=== PATIENT | female | born 1960 | race African-American/Black ===

== ENCOUNTER 2017-07-03 15:10 | Observation (INO) | payer OTHER, BC ==
[2017-07-03 15:32] VITALS: BMI 33.6
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
[2017-07-03 16:15] LABS: BASOPHIL 1.2 % (0-2.0); EOSINOPHIL 4.5 % (0-4.5); MCH 28.8 pg (25.7-33.7); MCHC 32.4 g/dl (32.0-36.0); MEAN CELL VOLUME 88.9 fl (80-96); MEAN PLT VOLUME 9.2 fl (7.5-11.1); PLATELET COUNT 94 K/MM3 (134-434); RDW 20.3 % (11.6-15.6); WHITE BLOOD COUNT 3.8 K/mm3 (4.0-10.0)
--- NOTE | 2017-07-03 16:28 | PDOC ---
*Physical Exam - Vital Signs Last Vital Signs Temp Pulse Resp BP Pulse Ox 99.1 F 86 19 143/80 95 07/03/17 15:27 07/03/17 15:27 07/03/17 15:27 07/03/17 15:27 07/03/17 15:27 ED Treatment Course - LABORATORY CBC & Chemistry Diagram: 07/03/17 16:10 07/03/17 16:10 - ADDITIONAL ORDERS Additional order review: 07/03/17 16:10 RBC 3.78 D MCV 88.9 MCHC 32.4 RDW 20.3 H D MPV 9.2 Neutrophils % 62.0 Lymphocytes % 27.0 D Monocytes % 5.3 Eosinophils % 4.5 Basophils % 1.2 Medical Decision Making - Medical Decision Making 07/03/17 16:26 Pt seen by Midlevel Provider under my direct supervision Ancillary studies reviewed I agree with plan as outlined by Midlevel Provider *DC/Admit/Observation/Transfer Diagnosis at time of Disposition: Malaise, Dialysis patient - Discharge Dispostion Disposition: HOME Condition at time of disposition: Stable
[2017-07-03 16:45] LABS: INR 0.97 (0.82-1.09); PROTHROMBIN TIME (PATIENT) 10.7 SEC (9.98-11.88)
[2017-07-03 16:46] LABS: ALBUMIN 3.4 g/dl (3.4-5.0); ANION GAP 10 (8-16); BILIRUBIN,TOTAL 0.5 mg/dL (0.2-1.0); CALCIUM 9.3 mg/dL (8.5-10.1); CO2 29 mmol/L (21-32); GLUCOSE,RANDOM 125 mg/dL (74-106); SGOT/AST 34 U/L (15-37); SGPT/ALT 20 U/L (12-78); TOT PROT 7.4 g/dl (6.4-8.2)
[2017-07-03 16:49] LABS: ALK PHOS 122 U/L (45-117); CPK 75 IU/L (26-192); TROPONIN I < 0.02 ng/ml (0.00-0.05)
[2017-07-03 16:57] LABS: PLATELET COMMENT2 NO CLOTTING DETECTED; PLATELET COMMENT3 FEW LARGE PLTS; PLATELET ESTIMATE DECREASED (NORMAL)
[2017-07-03] MEDS ORDERED: IBUPROFEN 600 MG TABLET (FP) PO PRN (17:25)
[2017-07-03] MEDS ORDERED: diphenhydrAMINE HCL 25 MG CAPSULE (FP) PO PRN (17:25)
[2017-07-03] MEDS ORDERED: NICOTINE 7 MG/24 HOURS TOPICAL PATCH TD SCH (17:30)
[2017-07-03] MEDS ORDERED: ERGOCALCIFEROL (VITAMIN D2) 50,000 UNIT CAPSULE (FP) PO SCH (17:30)
[2017-07-03] MEDS ORDERED: PATIENT'S OWN MEDICATION (NON-FORMULARY) (Oxycodone Hcl [Oxycodone Hcl] 10 MG) PO SCH (17:30)
[2017-07-03] MEDS ORDERED: oxyCODONE HCL 5 MG TABLET PO PRN (17:31)
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
[2017-07-03 21:41] VITALS: TEMP 98.1
[2017-07-03] MEDS ORDERED: POTASSIUM CHLORIDE TABS 10 MEQ TABLET.ER (FP) PO SCH (22:00)
[2017-07-03] MEDS ORDERED: ZOLPIDEM TARTRATE 5 MG TABLET PO PRN (22:00)
[2017-07-03] MEDS ORDERED: RIFAXIMIN 550 MG TABLET (UD) PO SCH (22:00)
[2017-07-04 00:11] VITALS: BP 142/88; PULSE 85
[2017-07-04] MEDS ORDERED: LEVOTHYROXINE NA 50 MCG TABLET (FP) PO SCH (07:00)
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
--- NOTE | 2017-07-04 09:47 | EKG ---
Test Reason : Blood Pressure : / mmHG Vent. Rate : 069 BPM Atrial Rate : 069 BPM P-R Int : 210 ms QRS Dur : 094 ms QT Int : 454 ms P-R-T Axes : 031 041 049 degrees QTc Int : 486 ms SINUS RHYTHM WITH 1ST DEGREE A-V BLOCK PROLONGED QT ABNORMAL ECG WHEN COMPARED WITH ECG OF 26-JUN-2013 23:11, NO SIGNIFICANT CHANGE WAS FOUND Confirmed by MD CHINO, KRISTA ([id number]) on 07/04/2017 9:47:46 AM Referred By: Confirmed By:KRISTA MAGANA MD
[2017-07-04] MEDS ORDERED: MAGNESIUM OXIDE 400 MG TABLET (FP) PO SCH (10:00)
[2017-07-04] MEDS ORDERED: FEBUXOSTAT 40 MG TAB PO SCH (10:00)
[2017-07-04] MEDS ORDERED: DULoxetine HCL 30 MG CAPSULE.DR (FP) PO SCH (10:00)
[2017-07-04] MEDS ORDERED: DOXAZOSIN MESYLATE 2 MG TABLET (FP) PO SCH (10:00)
[2017-07-04] MEDS ORDERED: FOLIC ACID 1 MG TABLET (FP) PO SCH (10:00)
[2017-07-04] MEDS ORDERED: LACTULOSE 20 GM/30 ML UDC (FOR ORAL USE ONLY) PO SCH (10:00)
[2017-07-04] MEDS ORDERED: cloNIDine HCL 0.1 MG TABLET PO SCH (10:00)
[2017-07-04] MEDS ORDERED: CALCITRIOL 0.25 MCG CAPSULE (FP) PO SCH (10:00)
[2017-07-04] MEDS ORDERED: FUROSEMIDE 20 MG TABLET (FP) PO SCH (10:00)
[2017-07-04] MEDS ORDERED: DOXEPIN HCL 25 MG CAPSULE PO SCH (22:00)
[2017-07-07 00:06] LABS: HEP B SURFACE AB Reactive (.)
== END 2017-07-04 00:50 | disposition home or self-care (01) ==
LOC: JER 15:10 → JERBED 17:49 → UNDOADMOB 18:23 → JERBED 18:23 → J5S 19:08
PROVIDERS: ADMIT Internal Medicine; ATTEND Nurse Practitioner Family
DX: N18.5 Chronic kidney disease, stage 5 (principal); I12.0 Hypertensive chronic kidney disease with stage 5 chronic kidney disease or end stage renal disease; N17.9 Acute kidney failure, unspecified; Z99.2 Dependence on renal dialysis; I50.9 Heart failure, unspecified; D64.9 Anemia, unspecified; E11.9 Type 2 diabetes mellitus without complications; E78.00 Pure hypercholesterolemia, unspecified; K74.60 Unspecified cirrhosis of liver; Z88.8 Allergy status to other drugs, medicaments and biological substances; Z95.5 Presence of coronary angioplasty implant and graft; F17.210 Nicotine dependence, cigarettes, uncomplicated; L29.9 Pruritus, unspecified; Z79.84 Long term (current) use of oral hypoglycemic drugs; E03.9 Hypothyroidism, unspecified; M10.9 Gout, unspecified; R53.81 Other malaise
CPT/HCPCS: 36415; 71010-TC; 80053; 84484; 85025; 85610; 86704; 86706; 86708; 86803; 87340; 93005; 93010; 99282-25; G0378

== ENCOUNTER 2019-05-31 00:41 | Emergency (ER) | payer OTHER, BC ==
[2019-05-31 00:54] VITALS: TEMP 97.8; BMI 30.1
[2019-05-31] MEDS ORDERED: ACETAMINOPHEN 500 MG TABLET (FP) PO ONE (01:24)
[2019-05-31] MEDS ORDERED: ACETAMINOPHEN 325 MG TABLET (FP) ONE (02:03)
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
[2019-05-31 02:49] VITALS: BP 90/48; PULSE 70
[2019-05-31] MEDS ORDERED: BACITRACIN 0.9 GM PACKET ONE (03:17)
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
== END 2019-05-31 04:00 | disposition left against medical advice (07) ==
LOC: JER 00:41
DX: M25.561 Pain in right knee (principal); M25.562 Pain in left knee; M54.5 Low back pain; W01.0XXA Fall on same level from slipping, tripping and stumbling without subsequent striking against object, initial encounter; Y93.89 Activity, other specified; Y92.89 Other specified places as the place of occurrence of the external cause; Y99.8 Other external cause status; I25.10 Atherosclerotic heart disease of native coronary artery without angina pectoris; Z98.61 Coronary angioplasty status; I13.2 Hypertensive heart and chronic kidney disease with heart failure and with stage 5 chronic kidney disease, or end stage renal disease; N18.6 End stage renal disease; I50.89 Other heart failure; Z99.2 Dependence on renal dialysis; E11.9 Type 2 diabetes mellitus without complications; M10.9 Gout, unspecified; M06.9 Rheumatoid arthritis, unspecified; E03.9 Hypothyroidism, unspecified; Z87.39 Personal history of other diseases of the musculoskeletal system and connective tissue; Z91.19 Patient's noncompliance with other medical treatment and regimen
CPT/HCPCS: 72100-TC-FY; 73130-TC-RT-FY; 73562-TC-LT-FY; 99283-25